=== PATIENT | female | born 1995 | race Caucasian/White ===

== ENCOUNTER 2022-08-09 18:39 | Outpatient (CLI) | payer SELFPAY | END 2022-08-09 18:40 | disposition short-term general hospital (02) | LOC: EMS 18:39 | DX: R09.89 Other specified symptoms and signs involving the circulatory and respiratory systems (principal); R06.00 Dyspnea, unspecified; L50.0 Allergic urticaria; R10.9 Unspecified abdominal pain | CPT/HCPCS: A0425; A0427 ==